=== PATIENT | female | born 1985 | race Caucasian/White ===

== ENCOUNTER 2017-07-21 16:04 | Emergency (ER) | payer SELFPAY ==
[~2017-07-21] VITALS: Ht 157.5 cm; Wt 88.9 kg
[2017-07-21 16:41] VITALS: BP 129/84
[2017-07-21] MEDS ORDERED: [UNRECOGNIZED DRUG - CODE] PO (16:47)
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
[2017-07-21] MEDS ORDERED: oxyCODONE/APAP 5/325 MG 1 TAB TAB PO ONE (20:30)
--- NOTE | 2017-07-21 21:15 | NUR ---
PATIENT TAKEN TO XRAY VIA WHEELCHAIR.
--- NOTE | 2017-07-21 21:40 | NUR ---
PATIENT RETURN FROM XRAY.
[2017-07-21 22:52] VITALS: BP 131/80
--- NOTE | 2017-07-21 22:52 | NUR ---
Patient discharged with v/s stable. Written and verbal after care instructions given and explained. Patient alert, oriented and verbalized understanding of instructions. Ambulatory with steady gait. All questions addressed prior to discharge. ID band removed. Patient advised to follow up with PMD. Rx of FLEXERIL 5 MG & IBUPROFEN 800MG given. Patient educated on indication of medication including possible reaction and side effects. Opportunity to ask questions provided and answered.
== END 2017-07-21 22:52 | disposition home or self-care (01) ==
LOC: MED 16:04
DX: S13.4XXA Sprain of ligaments of cervical spine, initial encounter (principal); M25.512 Pain in left shoulder; R03.0 Elevated blood-pressure reading, without diagnosis of hypertension; Z79.899 Other long term (current) drug therapy; V43.02XA Car driver injured in collision with other type car in nontraffic accident, initial encounter; Y93.89 Activity, other specified; Y92.524 Gas station as the place of occurrence of the external cause; Y99.8 Other external cause status
CPT/HCPCS: 72050; 73030; 81025; 99284

== ENCOUNTER 2020-06-22 20:56 | Emergency (ER) | payer MEDICAID ==
[~2020-06-22] VITALS: Ht 172.7 cm; Wt 83.9 kg
[~2020-06-22 20:56] MED LIST: IBUP-1969 PO
[2020-06-22 21:20] VITALS: BP 145/94
[2020-06-22] MEDS ORDERED: KETOROLAC 30 MG/ML VIAL IM STA (21:22)
[2020-06-22 22:23] VITALS: BP 145/94
== END 2020-06-22 22:23 | disposition home or self-care (01) ==
LOC: MED 20:56
DX: S13.4XXA Sprain of ligaments of cervical spine, initial encounter (principal); M62.838 Other muscle spasm; Z79.899 Other long term (current) drug therapy; V89.2XXA Person injured in unspecified motor-vehicle accident, traffic, initial encounter; Y93.89 Activity, other specified; Y92.89 Other specified places as the place of occurrence of the external cause; Y99.8 Other external cause status
CPT/HCPCS: 71045; 72125; 81025; 96372; 99284; J1885